=== PATIENT | female | born 1975 | race Caucasian/White ===

== ENCOUNTER 2024-10-14 20:03 | Emergency (ER) | payer OTHER, SELFPAY ==
[2024-10-14 20:15] VITALS: BP 114/80; PULSE 87; RESP 24; TEMP 36.7; O2SAT 97; BMI 17.9
--- NOTE | 2024-10-14 20:15 | ED_ITS ---
<Statement entered by Lara Hopson DO - 10/15/24 01:59> I was consulted by the NAYA, and we discussed the complexity of problems being addressed. I approve the treatment and management plan for this patient's care in the emergency department, thus performing a substantial portion of the medical decision making. Lara Hopson DO Discharge Plan Disposition Chief Complaint: Wound/Laceration Referrals Follow up/Referrals: Provider,[facility]ire [Primary Care Provider, Medical] - See instructions Instructions Patient Instructions: DI for Laceration Repair Print Language Print Language: [place] Island[place] Discharge ED Provider: Lara Hopson General Adult HPI General Chief complaint: Wound/Laceration Stated complaint: A/O 6-12 @1999 cut thumb lft hand glenis Time Seen by Provider: 10/14/24 20:15 History of Present Illness HPI narrative: Patient presents for evaluation of left thumb injury. Patient was doing gardening work and holding material to be cut and her family member accidentally cut the tip of her left thumb. A partially cut through the nail in the nailbed. Patient still has motor and sensory beyond the laceration. Related Data Allergies Allergy/AdvReac Type Severity Reaction Status Date / Time No Known Allergies Allergy Verified 10/14/24 20:[address] [facility] Disclaimer: The information contained in this section may have been updated after the patient was seen, as this information can be updated by other users. Social History Smoking Status: Current every day smoker alcohol intake: never current occupational status: retired and disabled Travel in the last 8 weeks?: None ROS Obtained: Yes Systems reviewed as appropriate & no additional complaints except as documented Physical Exam General General appearance: alert and in no apparent distress Respiratory Respiratory exam: Present normal lung sounds bilaterally Cardiovascular Cardiovascular exam: Present regular rate Neurological Exam Neurological exam: Present alert and oriented X3 Medical Decision Making Medical Records Screening: Per USPSTF and CDC recommendations, given the prevalence of disease in our region, it is our hospital?s policy to screen for HIV and viral Hepatitis for all patients aged 18 and over and those with ongoing risk factors. Mike Inquiry Pt receiving controlled substance: No Vital Signs: 10/14/24 20:15 10/14/24 20:22 10/14/24 20:30 Temperature 98.1 F Temperature Source Oral Pulse Rate 80 Pulse Rate [Right Radial] 87 Respiratory Rate 24 Blood Pressure 114/80 123/83 Blood Pressure [Right Arm] 114/80 Blood Pressure Mean 93 Blood Pressure Mean [Right Arm] 91 Blood Pressure Source [Right Arm] Automatic Cuff 02 Sat by Pulse Oximetry 97 97 Oxygen Delivery Method Room Air 10/14/24 21:00 Temperature Temperature Source Pulse Rate 80 Pulse Rate [Right Radial] Respiratory Rate Blood Pressure 115/73 Blood Pressure [Right Arm] Blood Pressure Mean Blood Pressure Mean [Right Arm] Blood Pressure Source [Right Arm] 02 Sat by Pulse Oximetry 98 Oxygen Delivery Method Orders (Tests/Meds): ED MEDICATIONS Generic Name Dose Route Start Last Admin Trade Name Freq PRN Reason Stop Dose Admin Cefazolin Sodium 2 gm 10/14/24 21:38 Cefazolin 1gm Vial IM 10/14/24 21:39 ONCE ONE Discontinued Medications Generic Name Dose Route Start Last Admin Trade Name Freq PRN Reason Stop Dose Admin Acetaminophen 1,000 mg 10/14/24 20:59 10/14/24 21:28 Acetaminophen 500mg Tab PO 10/14/24 21:00 1,000 mg ONCE ONE Administration Cefazolin Sodium 2 gm/ Sodium 100 mls @ 200 mls/hr 10/14/24 21:06 Chloride IV 10/14/24 21:35 ONCE ONE Ibuprofen 800 mg 10/14/24 20:59 10/14/24 21:28 Ibuprofen 400 Mg Tablet PO 10/14/24 21:00 800 mg ONCE ONE Administration Lidocaine/Epinephrine 10 ml 10/14/24 20:59 Lidocaine 1% W/Epi 1:100,000 20ml Vial SQ 10/14/24 21:00 ONCE ONE ORDERS Category Date Time Status XR finger LT min 2V Stat Exams 10/14/24 20:18 Taken Medical Decision Narrative: In summary patient is a 49-year-old female who presents to the emergency department for evaluation of laceration to the left thumb. Patient is hemodynamically stable upon arrival, afebrile. Physical exam is remarkable for a laceration through the nailbed of the distal tip of her left thumb. She still has sensation at the fingertip.. Differential diagnosis includes laceration versus open fracture. Initial workup will be conducted with plain film x-rays.. Initial interventions include Tylenol and ibuprofen. Patient's tetanus is up-to-date. Initial workup reviewed by me and my informed interpretation of her imaging shows a distal tuft fracture prior to radiology read. Please see final read formal interpretation. Given the open fracture I had an interactive discussion with the [facility] and hand surgery regarding patient presentation LEHMAN and management and she has been accepted to the [facility] emergency room graciously by Dr. Hdz for hand surgery. Patient was given 2 g of Ancef prior to transfer. Critical Care Critical Care Time Critical Care Time: No
--- NOTE | 2024-10-14 20:18 | XR_ITS ---
PROCEDURE INFORMATION: Exam: XR Left Finger(s) Exam date and time: 10/14/2024 8:54 PM Age: 49 years old Clinical indication: Injury or trauma; Other: Cut with gardening glenis; Laceration; Finger; Left; Thumb; Additional info: Cut tip of thumb with pruning glenis TECHNIQUE: Imaging protocol: Radiologic exam of the left fingers. Views: Minimum 2 views. COMPARISON: No relevant prior studies available. FINDINGS: Bones/joints: Minimally-displaced 1st distal phalangeal tuft fracture. No dislocation. Soft tissues: Laceration overlying 1st distal phalanx. IMPRESSION: First distal phalangeal tuft fracture.
[2024-10-14 20:22] VITALS: BP 114/80
[2024-10-14 20:30] VITALS: BP 123/83; PULSE 80; O2SAT 97
[2024-10-14 21:00] VITALS: BP 115/73; PULSE 80; O2SAT 98
[2024-10-14] MEDS: IBUPROFEN 400 MG TABLET 800 MG PO (21:28)
[2024-10-14] MEDS: ACETAMINOPHEN 500MG TAB 1000 MG PO (21:28)
[2024-10-14 21:35] VITALS: BP 122/79; PULSE 83; O2SAT 99
--- NOTE | 2024-10-14 21:50 | PC.NURSE ---
ancef given in right and left gluteus amber
[2024-10-14 22:01] VITALS: BP 122/79; PULSE 83; RESP 18; TEMP 36.7; O2SAT 99
== END 2024-10-14 22:03 | disposition short-term general hospital (02) ==
PROVIDERS: Emergency Provider Student in an Organized Health Care Education/Training Program
DX: S62.522B Displaced fracture of distal phalanx of left thumb, initial encounter for open fracture (principal); W27.1XXA Contact with garden tool, initial encounter
CPT/HCPCS: 73140; 96372; 99285; J2004